=== PATIENT | female | born 1990 | race Caucasian/White ===

== ENCOUNTER 2016-09-17 09:51 | Emergency (ER) | payer OTHER ==
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
[~2016-09-17 09:51] MED LIST: PRENATAL1 TA1 PO
== END 2016-09-17 12:50 | disposition home or self-care (01) ==
LOC: SED 09:51
DX: S16.1XXA Strain of muscle, fascia and tendon at neck level, initial encounter (principal); S50.11XA Contusion of right forearm, initial encounter; V49.60XA Unspecified car occupant injured in collision with unspecified motor vehicles in traffic accident, initial encounter
CPT/HCPCS: 70486; 71020; 72040; 73090; 99284